=== PATIENT | male | born 1950 | race Caucasian/White ===

== ENCOUNTER → 2020-08-20 08:11 | Outpatient (BNVA) | payer MEDICARE, OTHER, SELFPAY | PROVIDERS: Family Provider Internal Medicine; PCP Internal Medicine; Visit Provider Urology | DX: Z12.5 Encounter for screening for malignant neoplasm of prostate (principal); C67.9 Malignant neoplasm of bladder, unspecified | CPT/HCPCS: 81003; G0103 ==

== ENCOUNTER 2020-11-20 11:16 | Outpatient (CLI) | payer MEDICARE, OTHER, SELFPAY ==
--- NOTE | 2020-11-20 11:27 | CT_ITS ---
WS: [id number] Exam: CT abdomen pelvis wo con [id number] Date/Time of Exam: 11/20/2020 11:30 AM Reason For Exam: BLADDER CA, ABD PAIN, WT LOSS, DIARRHEA DLP: 801.[address] scans at [facility] use at least one of these dose optimization techniques: automat ed exposure control; mA and/or kV adjustment per patient size (includes targeted exams where dose is matched to clinical indication); or iterative reconstruction. Comparison 01/28/2011. Stable-appearing 7 mm nodule in the posterior basal segment of the left lower lobe. Lower lung zones are otherwise clear. The liver, spleen and pancreas appear normal. There may be some wall thickening of the stomach that might reflect gastritis. Small hiatal hernia. The gallbladder is surgically absen t. The abdominal aorta is normal in caliber. Normal adrenal glands. No lymphadenopathy or free air. S mall bowel loops are not dilated. No significant large bowel abnormality. The appendix is not identif ied. No signs of acute appendicitis. No mass or adenopathy in the pelvis. The urinary bladder is smoo th in contour. Prostatomegaly noted. Small fat filled bilateral inguinal hernias. No destructive bone lesions. Spinal canal stenoses noted at L2-3, L3-4 and L4-5 secondary to posterior osteophytes. Mode rately advanced degenerative changes of the lumbar spine. CT/CT abdomen pelvis con [id number] IMPRESSION: 1. Stable-appearing noncalcified 7 mm soft tissue nodule in the posterior basal segment of the left lower lobe. 2. Wall thickening in the stomach that may represent gastritis or under distent ion of the stomach. Small hiatal hernia. 3. No mass, lymphadenopathy or acute process. 4. Prostatomegaly. Multilevel lumbar spinal canal stenosis. Small fat filled bi lateral inguinal hernias.
[2020-11-20] MEDS: barium sulfate 450 mL Oral Susp PO (11:29)
== END 2020-11-20 11:17 | disposition home or self-care (01) ==
PROVIDERS: PCP Internal Medicine; Visit Provider Surgery
DX: R10.9 Unspecified abdominal pain (principal); R19.7 Diarrhea, unspecified; C67.9 Malignant neoplasm of bladder, unspecified; R63.4 Abnormal weight loss; R13.10 Dysphagia, unspecified; R91.1 Solitary pulmonary nodule; N40.0 Benign prostatic hyperplasia without lower urinary tract symptoms; M48.061 Spinal stenosis, lumbar region without neurogenic claudication; K40.20 Bilateral inguinal hernia, without obstruction or gangrene, not specified as recurrent
CPT/HCPCS: 74176

== ENCOUNTER → 2021-08-31 08:52 | Outpatient (BNVA) | payer MEDICARE, OTHER, SELFPAY | PROVIDERS: PCP Internal Medicine; Visit Provider Urology | DX: C67.9 Malignant neoplasm of bladder, unspecified (principal) | CPT/HCPCS: 52000; 81003 ==

== ENCOUNTER 2022-08-29 06:48 | Outpatient (CLI) | payer MEDICARE, OTHER, SELFPAY ==
[2022-08-29 07:28] LABS: PSA Screen - Urology 2.32 ng/mL (0-4)
== END 2022-08-29 06:49 | disposition home or self-care (01) ==
PROVIDERS: PCP Internal Medicine; Visit Provider Urology
DX: Z12.5 Encounter for screening for malignant neoplasm of prostate (principal)
CPT/HCPCS: 36415; G0103

== ENCOUNTER → 2022-08-30 09:02 | Outpatient (BNVA) | payer MEDICARE, OTHER, SELFPAY | PROVIDERS: PCP Internal Medicine; Visit Provider Urology | DX: C67.9 Malignant neoplasm of bladder, unspecified (principal); Z12.5 Encounter for screening for malignant neoplasm of prostate | CPT/HCPCS: 51798; 52000; 81003; 99213 ==

== ENCOUNTER 2024-03-15 09:03 | Outpatient (CLI) | payer MEDICARE, OTHER, SELFPAY ==
--- NOTE | 2024-03-15 09:10 | XRR_ITS ---
PROCEDURE INFORMATION: Exam: XR Left Knee Exam date and time: 03/15/2024 9:15 AM Age: 73 years old Clinical indication: Left knee pain. TECHNIQUE: Imaging protocol: Radiologic exam of the left knee. Views: 1 or 2 views. COMPARISON: No relevant prior studies available. FINDINGS: Bones/joints: There is moderate joint space narrowing in the medial compartment. Undersurface patellar spurs. There are lateral spurs. No acute fracture, dislocation or subluxation is seen. Large knee joint effusion. Soft tissues: No significant soft tissue swelling. The extensor mechanism is grossly intact. XR/XR knee LT 1-2V [id number] IMPRESSION: 1. Mild tricompartmental osteoarthritis with a large knee joint effusion. 2. No acute fracture is seen.
== END 2024-03-15 09:04 | disposition home or self-care (01) ==
LOC: RAD 09:06
PROVIDERS: PCP Nurse Practitioner Family; Visit Provider Nurse Practitioner Family
DX: M25.462 Effusion, left knee (principal)
CPT/HCPCS: 73560